=== PATIENT | male | born 1985 | race Two or more races ===

== ENCOUNTER 2019-04-28 03:16 | Emergency (ER) | payer OTHER ==
[~2019-04-28] VITALS: Ht 175.3 cm; Wt 116.3 kg
[2019-04-28 04:29] VITALS: BP 124/74
== END 2019-04-28 04:30 ==
LOC: ED 04:24
DX: S00.83XA Contusion of other part of head, initial encounter (principal); Y04.8XXA Assault by other bodily force, initial encounter; Y93.89 Activity, other specified; Y92.69 Other specified industrial and construction area as the place of occurrence of the external cause; Y99.8 Other external cause status
CPT/HCPCS: 99281